=== PATIENT | male | born 1975 | race Caucasian/White ===

== ENCOUNTER 2024-06-07 11:42 | Outpatient (CLI) | payer OTHER, SELFPAY ==
--- NOTE | ~2024-06-07 | XR_ITS ---
EXAMINATION: XR chest 2V DATE: 06/07/2024 12:08 INDICATION: Acute pneumonia. Fever and cough. TECHNIQUE: Frontal and lateral views of the chest were obtained on 3 radiographs. COMPARISON: None. FINDINGS: There is no pneumonia, pleural effusion, or pneumothorax. The heart size is normal. There i s mild chronic anterior wedging of multiple vertebral bodies. IMPRESSION: 1. No acute cardiopulmonary disease. Reviewed, dictated and finalized at location A. 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
== END 2024-06-07 11:43 | disposition home or self-care (01) ==
PROVIDERS: PCP Student in an Organized Health Care Education/Training Program; Visit Provider Student in an Organized Health Care Education/Training Program
DX: J18.9 Pneumonia, unspecified organism (principal)
CPT/HCPCS: 71046

== ENCOUNTER 2024-06-09 08:54 | Emergency (ER) | payer OTHER, SELFPAY ==
--- NOTE | ~2024-06-09 | CT_ITS ---
EXAMINATION: CT brain wo con DATE: 06/09/2024 14:13 INDICATION: Headache TECHNIQUE: Computed tomography (CT) of the head was performed without intravenous contrast. Sagittal and coronal reconstructions were performed. The mA was adjusted according to patient size. Iterative reconstruction technique was employed. The dose-length product was 605.33 mGy-cm. COMPARISON: None FINDINGS: No acute intracranial hemorrhage, acute infarction or abnormal extra axial fluid collection. Ventricl es are normal and symmetric. No mass/mass effect. The orbits, paranasal sinuses and mastoid air cells are normal. IMPRESSION: 1. Normal head CT. Reviewed, dictated and finalized at location A. 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 Normal head CT.
--- OUTSIDE RECORDS SUMMARY | 2024-06-09 09:00 | XMS_ITS | Clinical Summary ---
Author Organization [facility] Address [address] [place] [address] Care Team Providers Care Supervisor Electronic Testing Name Role Phone Stefany Aguayo MD Primary Care Provider [phone] Source Comments [facility],non-owned Affiliates and Associated Physician Practices is amultiple site organization consisting of ambulatory clinics and hospital sitesin [place], [place], [place] and [place]. This disclosure is being madepursuant to the Care Everywhere program and may not contain all information available regarding this patient. Last updated [facility] Allergies Active Allergy Reactions Criticality Noted Date Comments Sulfa Drugs Rash Medium 11/21/2015 Medications * Be aware that medications may not be up to date on this document. Alwaysverify current medications with the patient. Medication Sig Dispensed Refills Start Date End Date Status levocetirizine (XYZAL) 5 MG tablet Take 1 tablet by mouth DAILY. 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 Other symptoms and signs inv olving the musculoskeletal system 11/22/2015 Family History Medical History Relation Name Comments Cancer Father Skin carcinoma Cancer Paternal Grandfather Renal Cancer Paternal Uncle Eye cancer Relation Name Status Comments Father Paternal Grandfather Paternal Uncle Social History Tobacco Use Types Packs/Day Years Used Date Smoking Tobacco: Never Alcohol Use Standard Drinks/Week Comments No 0 (1 standard drink = 0.6 oz pur e alcohol) Sex and Gender Information Value Date Recorded Sex Assigned at Not on file Gender Identity Not on file Sexual Orientation Not on file Last Filed Vital Signs Vital Sign Reading Time Taken Comments Blood Pressure 115/75 12/02/2015 8:03 AM CDT Pulse 56 12/02/2015 8:03 AM CDT Temperature 36.2 C (97.2 F) 12/02/2015 8:03 AM CDT Respiratory Rate 20 12/02/2015 8:03 AM CDT Oxygen Saturation 99% 11/25/2015 11:45 AM CDT Inhaled Oxygen Concentration - - Weight 102.1 kg (225 lb) 05/18/2016 8:51 AM 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 Height 188 cm (6' 2 ) 05/18/2016 8:51 AM 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 Body Mass Index 28.89 05/18/2016 8:51 AM 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 Plan of Treatment Health Maintenance Due Date Last Done Comments COLOGUARD (AGES 45-75) - COL ON CA SCREENING 1976 COLON MONITORING 1976 COLONOSCOPY - COLON CA SCREENING 1976 CT COLONOGRAPHY - COLON CA SCREENING 1976 Colorectal Cancer Screening 1976 FIT - COLON CA SCREENING 1976 FLEX SIG - COLON CA SCREENING 1976 LIPID TESTING 1976 HIV SCREENING 09/02/1991 HEPATITIS C SCREENING 08/28/1994 DTAP/TDAP/TD VACCINES (1 - Tdap) 09/02/1995 HEPATITIS B VACCINE (1 of 3 - 19+ 3-dose series) 09/02/1995 COVID-19 VACCINE (1 - 2023-2 5 season) 2023 INFLUENZA VACCINE (#1) 2023 DEPRESSION SCREENING 04/26/2024 ZOSTER VACCINE (1 of 2) 2026 HIB VACCINE Aged Out No longer eligi ble based on patient's age to complete this topic HPV VACCINE Aged Out No longer eligi ble based on patient's age to complete this topic MENINGOCOCCAL (Group B) VACCINE Aged Out No longer eligible based on patient's age to complete this topic MENINGOCOCCAL VACCINE Aged Out No zohreh belia eligible based on patient's age to complete this topic PNEUMOCOCCAL VACCINE Aged Out No long er eligible based on patient's age to complete this topic Advance Directives Documents on File Type Date 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
--- OUTSIDE RECORDS SUMMARY | 2024-06-09 09:00 | XMS_ITS | Clinical Summary ---
Author Organization [facility] Address [address] [place] [id number] Care Team Providers Care Patient Biller Name Role Phone Stefany Aguayo MD Primary Care Provider Allergies Active Allergy Reactions Criticality Noted Date Comments Sulfa Antibiotics Unknown,Rash Medium 05/25/2011 Medications lansoprazole (PREVACID) 30 MG capsule Take 1 capsule (30 mg total) by mouth daily. Active fluticasone propionate (FLONASE) 50 MCG/ACT nasal spray 1 spray by Each Nostril route daily. 10/09/2022 Active Active Problems Problem Noted Date Diagnosed Date Screen for colon cancer 11/02/2022 Overview (11/02/2022): Added automatically from request for surgery [id number] Social History Tobacco Use Types Packs/Day Years Used Date Smoking Tobacco: Never Smokeless Tobacco: Never Tobacco Cessation:Counseling Given: Not Answered Alcohol Use Standard Drinks/Week Comments Not Currently 0 (1 standard drink = 0.6 oz pur e alcohol) Sex and Gender Information Value Date Recorded Sex Assigned at Not on file Legal Sex Male 5:02 PM CDT Gender Identity Not on file Sexual Orientation Not on file Last Filed Vital Signs Vital Sign Reading Time Taken Comments Blood Pressure 130/94 11/24/2022 10:42 AM CDT Pulse 59 11/24/2022 10:42 AM CDT Temperature 36.4 C (97.6 F) 11/24/2022 10:12 AM CDT Respiratory Rate 16 11/24/2022 10:42 AM CDT Oxygen Saturation 96% 11/24/2022 10:42 AM CDT Inhaled Oxygen Concentration - - Weight 111.6 kg (246 lb) 11/24/2022 9:08 AM CDT Height 188 cm (6' 2 ) 11/24/2022 9:08 AM CDT Body Mass Index 31.58 11/24/2022 9:08 AM CDT Plan of Treatment Health Maintenance Due Date Last Done Comments Annual Physical 09/02/1979 PHQ-2 (Physician [facility]) 1988 Hepatitis C 1994 Hepatitis B Vaccines (1 of 3 - 19+ 3-dose series) 09/02/1995 DTaP, Tdap and Td Vaccines (5 - Td or Tdap) 05/25/2021 05/25/2011, 08/12/1979, 08/12/1979, Additional history exists COVID-19 Vaccine ( - 2023- season) 2023 01/27/2022, 05/07/2021, 06/21/2020, Additional history exists Influenza Adult (#1) 2024 02/01/2020 PHQ-2 (Physician [facility]) 04/26/2024 Colorectal Cancer Screening Colonoscopy (10 Years) 11/24/2032 11/24/2022, 11/24/2022 Meningococcal B Vaccine Aged Out No l onger eligible based on patient's age to complete this topic Meningococcal Vaccine Aged Out No zohreh belia eligible based on patient's age to complete this topic Pneumococcal Vaccine: Pediatrics (0 to 5 Years) and At-Risk Patients (6 to 64 Years) Aged Out No longer eligible based on patient's age to complete this topic RSV Immunizations Under 20 Months Aged Out No longer eligible based on patient's age to complete this topic Procedures Procedure Name Priority Date/Time Associated Diagnosis Comments COLONOSCOPY Routine 11/24/2022 8:49 AM CDT from Last 3 Months or Most Recently Relevant to Health Maintenance Insurance ALLIED BENEFITS Care Teams Patient Biller Relationship Specialty Start Date End Date Stefany Aguayo MD [address] [place] [address] [address] [place] [id number] PCP - General FAMILY PRACTICE 11/16/22
--- OUTSIDE RECORDS SUMMARY | 2024-06-09 09:00 | XMS_ITS | Referral Summary ---
Author Organization [facility] [address] Address [address] [place] [address] Care Team Providers Care Floriculture Teacher Name Role Phone Stefany Aguayo MD Primary Care Provider Source Comments [facility] [address] [facility],non-owned Affiliates and Associated Physician Practices is amultiple site organization consisting of ambulatory clinics and hospital sitesin [place], [place], [place] and [place]. This disclosure is being madepursuant to the Care Everywhere program and may not contain all information available regarding this patient. 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
[2024-06-09 09:01] VITALS: BP 151/104; PULSE 92; RESP 16; TEMP 36.6; O2SAT 100
--- OUTSIDE RECORDS SUMMARY | 2024-06-09 09:01 | XMS_ITS | Patient Health Summary ---
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 This disclosure is being madepursuant to the Care Everywhere program and may not contain all information available regarding this patient. Last updated 18.[facility] Allergies * Sulfa Drugs(Rash) -Medium Criticality Medications * Be aware that medications may not be up to date on this document. Alwaysverify current medications with the patient. * levocetirizine (XYZAL) 5 MG tablet(Started 11/13/2015) Take 1 tablet by mouth DAILY. 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 Other symptoms and signs inv [...] 102.1 kg (225 lb) 05/18/2016 8:51 AM DRYWALL SPRAYER Height 188 cm (6' 2 ) 05/18/2016 8:51 AM DRYWALL SPRAYER Body Mass Index 28.89 05/18/2016 8:51 AM DRYWALL SPRAYER Procedures * XR CERVICAL SPINE 2 OR 3VW(Performed 05/18/2016) * GGT(Performed 11/25/2015) * COMPREHENSIVE METABOLIC PANEL(Performed 11/25/2015) * CBC W AUTO DIFFERENTIAL(Performed 11/25/2015) * CK BLOOD(Performed 11/25/2015) * CBC W AUTO DIFFERENTIAL(Performed 11/25/2015) * SHON W/REFLEX IFA PATTERN(Performed 11/24/2015) * MUMPS ANTIBODY IGM(Performed 11/24/2015) * SHON BLOOD SCREEN W/REFLEX TITER(Performed 11/24/2015) * MUMPS ANTIBODY IGG(Performed 11/24/2015) * GQ1B IGG ANTIBODY(Performed 11/24/2015) * COMPREHENSIVE METABOLIC PANEL(Performed 11/24/2015) * CBC W AUTO DIFFERENTIAL(Performed 11/24/2015) * CBC W AUTO DIFFERENTIAL(Performed 11/24/2015) * MRI THORACIC SPINE WO CONTRAST(Performed 11/23/2015) * MRI LUMBAR SPINE WO CONTRAST(Performed 11/23/2015) * COMPREHENSIVE METABOLIC PANEL(Performed 11/23/2015) * DIFFERENTIAL MANUAL(Performed 11/23/2015) * CBC W AUTO DIFFERENTIAL(Performed 11/23/2015) * CBC W AUTO DIFFERENTIAL(Performed 11/23/2015) * URINALYSIS REFLEX TO MICROSCOPIC NO CULTURE(Performed 11/22/2015) * FOLATE(Performed 11/22/2015) * CK BLOOD(Performed 11/22/2015) * CELL COUNT CSF(Performed 11/22/2015) * DIFFERENTIAL MANUAL FLUID(Performed 11/22/2015) * CELL COUNT CSF(Performed 11/22/2015) * CELL COUNT W DIFF CSF(Performed 11/22/2015) * CELL COUNT W DIFF CSF(Performed 11/22/2015) * LYME DISEASE AB SCREEN CSF(Performed 11/22/2015) * PROTEIN CSF(Performed 11/22/2015) * GLUCOSE CSF(Performed 11/22/2015) * CULTURE CSF+GRAM STAIN(Performed 11/22/2015) * EKG 12-LEAD(Performed 11/22/2015) * VITAMIN B12(Performed 11/21/2015) * T3 FREE(Performed 11/21/2015) * T4 FREE(Performed 11/21/2015) * TSH(Performed 11/21/2015) * CK BLOOD(Performed 11/21/2015) * DRUG ABUSE PANEL 10-20+ETHANOL URINE NO CONFIRM(Performed 11/21/2015) * CT HEAD WO CONTRAST(Performed 11/21/2015) * LYME DISEASE IGG/IGM PANEL WB/IMMUNOBLOT(Performed 11/21/2015) * ERYTHROCYTE SEDIMENTATION RATE(Performed 11/21/2015) * CK + CKMB PANEL(Performed 11/21/2015) * ALCOHOL ETHYL BLOOD(Performed 11/21/2015) * COMPREHENSIVE METABOLIC PANEL(Performed 11/21/2015) * C-REACTIVE PROTEIN(Performed 11/21/2015) * CBC W AUTO DIFFERENTIAL(Performed 11/21/2015) * CBC W AUTO DIFFERENTIAL(Performed 11/21/2015) Results * XR CERVICAL SPINE 2 OR 3VW (05/18/2016 8:49 AM DRYWALL SPRAYER) Anatomical Region Laterality Modality Spine Other Impressions 05/18/2016 9:06 AM DRYWALL SPRAYER IMPRESSION: Mild degenerative disc disease at C5-C6. Dictated by Leslie Martin MD (residential care facility manager). I, Dr. ANA LO M.D. have personally reviewed and interpreted this examination/study. This report was electronically signed by ANA LO M.D. on 05/18/2016 9:06 AM . Narrative 05/18/2016 9:06 AM DRYWALL SPRAYER EXAMINATION: XR SPINE CERVICAL 2 OR 3 VIEWS HISTORY: neck pain COMPARISON: None. FINDINGS: The vertebral bodies are normally aligned. No acute fracture or compression deformity is identified. Mild degenerative narrowing is seen at C5-C6 with mild uncovertebral osteophytes. The remainder of the disc spaces are maintained. The predental interval and prevertebral soft tissues are normal. Bone density is normal. Procedure Note Ana Lo MD - 07/23/2017 EXAMINATION: XR SPINE CERVICAL 2 OR 3 VIEWS HISTORY: neck pain COMPARISON: None. FINDINGS: The vertebral bodies are normally aligned. No acute fracture orcompression deformity is identified. Mild degenerative narrowing is seenat C5-C6 with mild uncovertebral osteophytes. The remainder of the discspaces are maintained. The predental interval and prevertebral soft tissues are normal. Bone density is normal. IMPRESSION IMPRESSION: Mild degenerative disc disease at C5-C6. Dictated by Leslie Martin MD (residential care facility manager). I, Dr. ANA LO M.D. have personally reviewed and interpreted thisexamination/study. This report was electronically signed by ANA LO M.D. on 05/18/20169:06 AM . Nicholas Bartlett MD DIAGNOSTIC IMAGING O RDERABLES * (ABNORMAL) COMPREHENSIVE METABOLIC PANEL (11/25/2015 4:34 AM CDT) Only the most recent of4 resultswithin the time period is included. BUN 17 7 - 26 mg/dL [facility] Creatinine 1.2 0.6 - 1.2 mg/dL [facility] Sodium 140 136 - 145 mmol/L [facility] Potassium 4.3 3.5 - 4.5 mmol/L [facility] Chloride 102 98 - 107 mmol/L [facility] CO2 26 22 - 29 mmol/L [facility] Glucose 94 70 - 115 mg/dL [facility] Calcium 9.5 8.4 - 10.2 mg/dL [facility] Protein Total 7.0 6.0 - 8.3 g/dL [facility] Albumin 3.5 3.4 - 5.0 g/dL [facility] Bilirubin Total 0.5 0.2 - 1.2 mg/dL [facility] Alkaline Phosphatase 53 40 - 150 Units/L [facility] ALT 125(H) 0 - 55 Units/L [facility] AST 84(H) 5 - 34 Units/L [facility] Anion Gap 16 8 - 18 [facility] BUN/Creatinine Ratio 14 7 - 23 [facility] Osmolality Calculated 291 270 - 300 mOsm/kg [facility] Albumin/Globulin Ratio 1.0(L) 1.1 - 2.3 [facility] eGFR >60 >60 mL/min/1.7 3 m2 [facility] Blood specimen (specimen) BLOOD SPECIMEN / Unknown 11/25/2015 4:34 AM CDT 11/25/2015 4:55 AM CDT Jonas Draper MD LAB - CHEMISTRY ORDMaria De Jesus ROSE [facility] [address] [place] [address] * GGT (11/25/2015 4:34 AM CDT) [facility] GGT 49 9 - 64 Units/L [facility] Blood specimen (specimen) BLOOD SPECIMEN / Unknown 11/25/2015 4:34 AM CDT 11/25/2015 4:55 AM CDT Clementina Elias MD LAB - CHEMISTRY [place] Performing Organization Address [facility]/ZIP Co de Phone Number [address] [phone] * CBC W AUTO DIFFERENTIAL (11/25/2015 4:34 AM CDT) Only the most recent of8 resultswithin the time period is included. [facility] WBC 5.1 3.5 - 10.5 10 3/uL [facility] RBC 4.79 4.30 - 5.70 10 6/uL [facility] Hemoglobin 14.4 13.5 - 17.5 g/dL [facility] Hematocrit 40.9 39.0 - 50.0 % [facility] MCV 85.4 81.0 - 97.0 fL [facility] MCH 30.1 28.0 - 34.0 pg [facility] MCHC 35.2 32.0 - 36.0 g/dL [facility] Platelet Count 193 150 - 400 10 3/uL [facility] RDW-SD 37.4 36.0 - 50.0 fL [facility] RDW-CV 12.0 11.2 - 14.8 % [facility] MPV 10.5 9.3 - 12.8 fL [facility] Neutrophils % 51.6 35.0 - 70.0 % [facility] Lymphocytes % 37.7 19.7 - 55.1 % [facility] Monocytes % 7.5 3.0 - 15.0 % [facility] Eosinophils % 3.0 0.0 - 6.0 % [facility] Basophil % 0.2 0.0 - 1.5 % [facility] Neutrophils Absolute 2.6 1.6 - 7.0 10 3/uL [facility] Lymphocyte Absolute 1.9 0.8 - 2.9 10 3/uL [facility] Monocytes Absolute 0.38 0.14 - 0.66 10 3/uL [facility] Eosinophils Absolute 0.15 0.00 - 0.22 10 3/uL [facility] Basophils Absolute 0.01 0.00 - 0.06 10 3/uL [facility] Immature Granulocytes % 0.2 0.0 - 1.0 % [facility] Blood specimen (specimen) BLOOD SPECIMEN / Unknown 11/25/2015 4:34 AM CDT 11/25/2015 4:55 AM CDT Jonas Draper MD LAB - HEMATOLOGY ORD ERABLES Performing Organization Address City/[facility]/ZIP Co de Phone Number [address] [phone] * CK BLOOD (11/25/2015 4:34 AM CDT) Only the most recent of3 resultswithin the time period is included. CK Total 157 30 - 200 Units/L [facility] Blood specimen (specimen) BLOOD SPECIMEN / Unknown 11/25/2015 4:34 AM CDT 11/25/2015 8:22 AM CDT Clementina Elias MD LAB - CHEMISTRY [place] [address] [phone] * (ABNORMAL) SHON W/REFLEX IFA PATTERN (11/24/2015 8:48 AM CDT) SHON Positive(A ) None Detected [facility] Blood specimen (specimen) BLOOD SPECIMEN / Unknown 11/24/2015 8:48 AM CDT 11/24/2015 9:20 AM CDT Clementina Elias MD LAB - SEROLOGY ORDER [place] [facility] [address] [place] [address] * SHON BLOOD SCREEN W/REFLEX TITER (11/24/2015 8:48 AM CDT) SHON IFA Negative [facility] ([facility]) Comment: Negative <1:80 Borderline 1:80 Positive >1:80 Blood specimen (specimen) BLOOD SPECIMEN / Unknown 11/24/2015 8:48 AM CDT 11/25/2015 11:09 AM CDT Narrative [facility] ([facility]) - 11/26/2015 3:18 PM CDT Performed at: [address] [place] [address] [id number] Deburr Operator: Cecilio Swain PhD, Phone: [phone] Clementina Elias MD LAB - CHEMISTRY JHOANA ROSE Performing Organization Address [facility] Co de Phone Number [facility] ([facility]) * MUMPS ANTIBODY IGG (11/24/2015 8:48 AM CDT) Pathologist [facility] Mumps Virus Antibody IgG 57.2 Immune >10.9 AU/mL [facility]) Comment: Negative <9.0 Equivocal 9.0 - 10.9 Positive >10.9 A positive result generally indicates past exposure to Mumps virus or previous vaccination. Blood specimen (specimen) BLOOD SPECIMEN / Unknown 11/24/2015 8:48 AM CDT 11/25/2015 1:06 PM CDT Narrative [facility] ([facility]) - 11/26/2015 3:18 PM CDT Performed at: [address] [place] [address] [id number] Deburr Operator: Cecilio Swain PhD, Phone: [phone] Clementina Elias MD LAB - CHEMISTRY J[place]ANA ROSE Performing Organization Address [facility]/ZIP Co de Phone Number [facility] ([facility]) * (ABNORMAL) MUMPS ANTIBODY IGM (11/24/2015 8:48 AM CDT) Mumps Virus Antibody IgM 8.48(H) 0.00 - 0.79 AU [facility] ([facility]) Comment: Negative < 0.80 Borderline 0.80 - 1.20 Positive > 1.20 Note: The presence of IgM specific antibody should be interpreted in conjunction with the patient's clinical history and exposure risk when an acute infection is suspected. Blood specimen (specimen) BLOOD SPECIMEN / Unknown 11/24/2015 8:48 AM CDT 11/25/2015 1:06 PM CDT Narrative [facility] ([facility]) - 11/28/2015 6:16 AM CDT Performed at: - [address] [id number] Deburr Operator: Catrachito Juarez MD, Phone: [phone] Clementina Elias MD LAB - CHEMISTRY J[place]ANA ROSE [facility] ([facility]) * GQ1B IGG ANTIBODY (11/24/2015 7:58 AM CDT) Pathologist [facility] Anti-GQ1b Antibody IgG <1:100 titer [facility] ([facility]) Comment: Reference Range: Negative: < 1:100 titer Positive: => 1:100 titer Titers of less than 1:400 may not be clinically significant. We suggest clinical correlation to ascertain the significance of the low titers. Antibodies against glycolipids (GM1, GD1a, GD1b, GQ1b, asialo GM1, and sulfatides) are present in patients with Guillain-[place] syndrome (GBS), IgM paraproteinemic neuropathy, and chronic demyelinating polyneuropathy (CIDP). Antibodies to one or more glycolipids are present in 60-70% of patients with GBS. The titers of anti-glycolipid antibodies are higher in acute phase and decrease in association with clinical improvement. Antibodies against GM1 and/or GD1b are frequently present in acute phase GBS. The two antibodies together occur in about 20% of these cases, anti-GM1 without anti-GD1b antibodies in about 10% and anti-GD1b without anti-GM1 antibodies in about 10% of GBS patients. Antibodies against GQ1b of IgG isotype are present in 95% of patients with Acharya Staton syndrome (MFS). The titers of these antibodies fluctuates with disease activity. IgM paraproteinemia is often associated with peripheral neuropathies. These antibodies are present in one half of patients with specificity for SGPG, GD1b and other gangliosides. Anti-GM1 IgM antibodies are usually associated with motor-dominant or sensorimotor neuropathies. These antibodies are also elevated in diseases other than multifocal neuropathies such as GBS, CIDP and other immunological diseases. *This test has been developed and performance parameters have been validated by [employer] This test has not been approved by the U.S. Food and Drug Administration (FDA); however, US FDA approval is not required for clinical use. It is not intended that clinical diagnosis and patient management decisions be made using these results alone. This test has been validated using serum samples. The field mechanic has not determined the efficacy of this test when performed on CSF, plasma, joint or pleural fluid specimens. The performance characteristics of this test were determined by [employer] Blood specimen (specimen) BLOOD SPECIMEN / Unknown 11/24/2015 7:58 AM CDT 11/24/2015 8:07 AM CDT Narrative [facility] ([facility]) - 11/29/2015 11:14 AM CDT Performed at: 01 - [employer] [address] [place] [address] [id number] Deburr Operator: Shahriar Quiles PhD, Phone: [phone] Clementina Elias MD LAB - CHEMISTRY J[place]ANA ROSE [facility] * MRI LUMBAR SPINE WO CONTRAST (11/23/2015 11:51 AM CDT) Anatomical Region Laterality Modality Spine Other Impressions 11/24/2015 8:20 AM CDT IMPRESSION: 1. A thin epidural fluid collection that extends from T1 through T11 levels of the thoracic spine, measuring up to 3 mm in maximum thickness. This collection is not suppressed on the STIR images, likely representing epidural hemorrhage/edema. There is no spinal cord compression or abnormal spinal cord signal. 2. Mild right paraspinal edema in the lumbar spine, likely related to recent lumbar puncture. No fluid collections. This report was electronically signed by BOBBY THOMAS M.D. on 11/24/2015 8:20 AM . Narrative 11/24/2015 8:20 AM CDT EXAMINATION: Thoracic and lumbar spine MRI without contrast. HISTORY: Pain between shoulder blades. Low back pain status post lumbar puncture. TECHNIQUE: Multiplanar multisequence MR imaging of the thoracic and lumbar spine was performed without intravenous contrast according to a standard protocol. Comparison: None available. FINDINGS: There is mild degenerative disc disease in the cervical spine at C5-C6 level. Thoracic spine: There is a thin epidural fluid collection that extends from T1 through T11 levels of the thoracic spine, measuring up to 3 mm in maximum thickness. This collection is not suppressed on the STIR images, likely representing epidural hemorrhage/edema. There is slight narrowing of the thecal sac. However, there no compression of the spinal cord. The spinal cord demonstrate normal caliber and signal throughout the entire course There is mild exaggerated thoracic kyphosis. There is mild gentle dextrocurvature in the thoracic spine. The vertebral heights are normal with no compression fractures. The bone marrow demonstrates normal signal intensity on all sequences. There is mild degenerative disc disease with multiple Schmorl's nodes in the thoracic spine. The central spinal canal is patent. The facet joints are well aligned. The neuroforamen are patent at all levels. The thoracic spinal cord is normal in caliber and signal intensity. Prevertebral soft tissues and paraspinal muscles are normal in thickness. The visualized portions of the descending aorta demonstrate normal caliber. Lumbar spine MRI: There is mild to moderate STIR hyperintensity in the right paraspinal muscle from L2 through L5 levels, likely representing edema related to history of recent lumbar puncture. No fluid collections are identified. The lumbar spine is normal in alignment. The vertebral heights are normal with no compression fractures. The bone marrow demonstrates normal signal intensity on all sequences. The intervertebral disc spaces are normal in signal and height. There is mild facet arthropathy at L4-L5 and L5-S1 levels bilaterally. The distal spinal cord demonstrate normal caliber and signal intensity. The conus medullaris is normal, terminating at L1. The neuroforamen and the central spinal canal are patent. No space occupying lesions are identified in the spinal canal or spinal cord. The cauda equina is normal. The visualized distal abdominal aorta demonstrates normal caliber. The paraspinal muscles are normal. Procedure Note Bobby Thomas MD - 07/24/2017 EXAMINATION: Thoracic and lumbar spine MRI without contrast. HISTORY: Pain between shoulder blades. Low back pain status post lumbarpuncture. TECHNIQUE: Multiplanar multisequence MR imaging of the thoracic and lumbarspine was performed without intravenous contrast according to a standardprotocol. Comparison: None available. FINDINGS: There is mild degenerative disc disease in the cervical spine at C5-S0tggdm. Thoracic spine: There is a thin epidural fluid collection that extends from T1 through [id number] of the thoracic spine, measuring up to 3 mm in maximum thickness.This collection is not suppressed on the STIR images, likely representingepidural hemorrhage/edema. There is slight narrowing of the thecal sac. However, there no compression ofthe spinal cord. The spinal cord demonstrate normal caliber and signalthroughout the entire course There is mild exaggerated thoracic kyphosis. There is mild gentledextrocurvature in the thoracic spine. The vertebral heights are normalwith no compression fractures. The bone marrow demonstrates normal signalintensity on all sequences. There is mild degenerative disc disease with multiple Schmorl's nodes in the thoracicspine. The central spinal canal is patent. The facet joints are wellaligned. The neuroforamen are patent at all levels. The thoracic spinalcord is normal in caliber and signal intensity. Prevertebral soft tissues and paraspinal muscles are normal in thickness.The visualized portions of the descending aorta demonstrate normalcaliber. Lumbar spine MRI: There is mild to moderate STIR hyperintensity in the right paraspinalmuscle from L2 through L5 levels, likely representing edema related tohistory of recent lumbar puncture. No fluid collections are identified. The lumbar spine is normal in alignment. The vertebral heights are normalwith no compression fractures. The bone marrow demonstrates normal signalintensity on all sequences. The intervertebral disc spaces are normal insignal and height. There is mild facet arthropathy at L4-L5 and L5-S1 levels bilaterally. The distal spinalcord demonstrate normal caliber and signal intensity. The conus medullarisis normal, terminating at L1. The neuroforamen and the central spinal canal are patent. No spaceoccupying lesions are identified in the spinal canal or spinal cord. Thecauda equina is normal. The visualized distal abdominal aorta demonstrates normal caliber. Theparaspinal muscles are normal. IMPRESSION IMPRESSION: 1. A thin epidural fluid collection that extends from T1 through X74uykege of the thoracic spine, measuring up to 3 mm in maximum thickness.This collection is not suppressed on the STIR images, likely representingepidural hemorrhage/edema. There is no spinal cord compression or abnormal spinal cord signal. 2. Mild right paraspinal edema in the lumbar spine, likely related torecent lumbar puncture. No fluid collections. This report was electronically signed by BOBBY THOMAS M.D. on 11/24/20158:20 AM . Clementina Elias MD MR ORDERABLES * MRI THORACIC SPINE WO CONTRAST (11/23/2015 11:51 AM CDT) Anatomical Region Laterality Modality Chest Other Impressions 11/24/2015 8:20 AM CDT IMPRESSION: 1. A thin epidural fluid collection that extends from T1 through T11 levels of the thoracic spine, measuring up to 3 mm in maximum thickness. This collection is not suppressed on the STIR images, likely representing epidural hemorrhage/edema. There is no spinal cord compression or abnormal spinal cord signal. 2. Mild right paraspinal edema in the lumbar spine, likely related to recent lumbar puncture. No fluid collections. This report was electronically signed by BOBBY THOMAS M.D. on 11/24/2015 8:20 AM . Narrative 11/24/2015 8:20 AM CDT EXAMINATION: Thoracic and lumbar spine MRI without contrast. HISTORY: Pain between shoulder blades. Low back pain status post lumbar puncture. TECHNIQUE: Multiplanar multisequence MR imaging of the thoracic and lumbar spine was performed without intravenous contrast according to a standard protocol. Comparison: None available. FINDINGS: There is mild degenerative disc disease in the cervical spine at C5-C6 level. Thoracic spine: There is a thin epidural fluid collection that extends from T1 through T11 levels of the thoracic spine, measuring up to 3 mm in maximum thickness. This collection is not suppressed on the STIR images, likely representing epidural hemorrhage/edema. There is slight narrowing of the thecal sac. However, there no compression of the spinal cord. The spinal cord demonstrate normal caliber and signal throughout the entire course There is mild exaggerated thoracic kyphosis. There is mild gentle dextrocurvature in the thoracic spine. The vertebral heights are normal with no compression fractures. The bone marrow demonstrates normal signal intensity on all sequences. There is mild degenerative disc disease with multiple Schmorl's nodes in the thoracic spine. The central spinal canal is patent. The facet joints are well aligned. The neuroforamen are patent at all levels. The thoracic spinal cord is normal in caliber and signal intensity. Prevertebral soft tissues and paraspinal muscles are normal in thickness. The visualized portions of the descending aorta demonstrate normal caliber. Lumbar spine MRI: There is mild to moderate STIR hyperintensity in the right paraspinal muscle from L2 through L5 levels, likely representing edema related to history of recent lumbar puncture. No fluid collections are identified. The lumbar spine is normal in alignment. The vertebral heights are normal with no compression fractures. The bone marrow demonstrates normal signal intensity on all sequences. The intervertebral disc spaces are normal in signal and height. There is mild facet arthropathy at L4-L5 and L5-S1 levels bilaterally. The distal spinal cord demonstrate normal caliber and signal intensity. The conus medullaris is normal, terminating at L1. The neuroforamen and the central spinal canal are patent. No space occupying lesions are identified in the spinal canal or spinal cord. The cauda equina is normal. The visualized distal abdominal aorta demonstrates normal caliber. The paraspinal muscles are normal. Procedure Note Bobby Thomas MD - 07/24/2017 EXAMINATION: Thoracic and lumbar spine MRI without contrast. HISTORY: Pain between shoulder blades. Low back pain status post lumbarpuncture. TECHNIQUE: Multiplanar multisequence MR imaging of the thoracic and lumbarspine was performed without intravenous contrast according to a standardprotocol. Comparison: None available. FINDINGS: There is mild degenerative disc disease in the cervical spine at C5-[id number]. Thoracic spine: There is a thin epidural fluid collection that extends from T1 through C25bucicg of the thoracic spine, measuring up to 3 mm in maximum thickness.This collection is not suppressed on the STIR images, likely representingepidural hemorrhage/edema. There is slight narrowing of the thecal sac. However, there no compression ofthe spinal cord. The spinal cord demonstrate normal caliber and signalthroughout the entire course There is mild exaggerated thoracic kyphosis. There is mild gentledextrocurvature in the thoracic spine. The vertebral heights are normalwith no compression fractures. The bone marrow demonstrates normal signalintensity on all sequences. There is mild degenerative disc disease with multiple Schmorl's nodes in the thoracicspine. The central spinal canal is patent. The facet joints are wellaligned. The neuroforamen are patent at all levels. The thoracic spinalcord is normal in caliber and signal intensity. Prevertebral soft tissues and paraspinal muscles are normal in thickness.The visualized portions of the descending aorta demonstrate normalcaliber. Lumbar spine MRI: There is mild to moderate STIR hyperintensity in the right paraspinalmuscle from L2 through L5 levels, likely representing edema related tohistory of recent lumbar puncture. No fluid collections are identified. The lumbar spine is normal in alignment. The vertebral heights are normalwith no compression fractures. The bone marrow demonstrates normal signalintensity on all sequences. The intervertebral disc spaces are normal insignal and height. There is mild facet arthropathy at L4-L5 and L5-S1 levels bilaterally. The distal spinalcord demonstrate normal caliber and signal intensity. The conus medullarisis normal, terminating at L1. The neuroforamen and the central spinal canal are patent. No spaceoccupying lesions are identified in the spinal canal or spinal cord. Thecauda equina is normal. The visualized distal abdominal aorta demonstrates normal caliber. Theparaspinal muscles are normal. IMPRESSION IMPRESSION: 1. A thin epidural fluid collection that extends from T1 through W11bckzzu of the thoracic spine, measuring up to 3 mm in maximum thickness.This collection is not suppressed on the STIR images, likely representingepidural hemorrhage/edema. There is no spinal cord compression or abnormal spinal cord signal. 2. Mild right paraspinal edema in the lumbar spine, likely related torecent lumbar puncture. No fluid collections. This report was electronically signed by BOBBY THOMAS M.D. on 11/24/20158:20 AM . Clementina Elias MD MR ORDERABLES * (ABNORMAL) DIFFERENTIAL MANUAL (11/23/2015 4:56 AM CDT) WBC (corrected for NRBC) 4.4 10 3/uL [facility] Total Cell Count 100 [facility] Neutrophils Absolute Manual 2.38 1.60 - 7.00 10 3/uL [facility] Comment:(BANDS+SEGS) x WBC = NEUT # (ANC) Lymphocyte Absolute Manual 1.63 0.80 - 2.90 10 3/uL [facility] Monocytes Absolute Manual 0.26 0.14 - 0.66 10 3/uL [facility] Eosinophils Absolute Manual 0.09 0.00 - 0.22 10 3/uL [facility] Band % Manual 3 0 - 10 % [facility] Neutrophil % Manual 51 30 - 60 % [facility] Lymphocyte % Manual 37 20 - 45 % [facility] Monocytes % Manual 6 2 - 10 % [facility] Eosinophils % Manual 2 1 - 6 % [facility] Atypical Lymphocyte % Manual 1(H) 0 % [facility] Platelet Estimate Adequate Adequate [facility] RBC Morphology Normal [facility] Blood specimen (specimen) BLOOD SPECIMEN / Unknown 11/23/2015 4:56 AM CDT 11/23/2015 5:20 AM CDT Jonas Draper MD LAB - HEMATOLOGY ORD ERABLES [address] [phone] * (ABNORMAL) URINALYSIS REFLEX TO MICROSCOPIC NO CULTURE (11/22/2015 5:01 PM CDT) Color UA Yellow Straw, Yellow, Colorless, Light Yellow [facility] Clarity UA Clear Clear [facility] Specific [place] UA 1.010 1.001 - 1.030 [facility] pH UA 7.0 5.0 - 8.0 [facility] Protein UA Negative <=20 mg/dL [facility] Glucose UA Negative Negative mg/dL [facility] Ketone UA Negative Negative mg/dL [facility] Bilirubin UA Negative Negative mg/dL [facility] Blood UA Negative Negative [facility] Nitrite UA Negative Negative [facility] Leukocyte Esterase Negative Negative [facility] Urobilinogen UA <2.0 <2.0 mg/dL [facility] RBC UA 3 0 - 8 /HPF [facility] WBC UA <1 0 - 2 /HPF [facility] Bacteria UA Rare Rare, Occasional, None /HPF [facility] Mucus UA Rare(A) None /LPF [facility] Urine specimen (specimen) 11/22/2015 5:01 PM CDT 11/22/2015 5:01 PM CDT Jonas Draper MD LAB - URINALYSIS ORD APT Performing Organization Address [facility]/ZIP Co de Phone Number [address] [phone] * FOLATE (11/22/2015 11:15 AM CDT) Pathologist [facility] Folate 11.9 7.0 - 31.4 ng/mL [facility] Blood specimen (specimen) BLOOD SPECIMEN / Unknown 11/22/2015 11:15 AM CDT 11/22/2015 11:15 AM CDT Clementina Elias MD LAB - CHEMISTRY JHOANA ROSE Performing Organization Address [facility]/ZIP Co de Phone Number [address] [phone] * (ABNORMAL) CELL COUNT CSF (11/22/2015 1:57 AM CDT) Only the most recent of2 resultswithin the time period is included. Pathologist [facility] Color Fluid Colorless Colorless, Straw [facility] Clarity Fluid Clear Clear [facility] Volume Fluid 1.5 mL [facility] WBC Calculation Fluid 0 0 - 5 /uL [facility] RBC Calculation 1(H) 0 /uL [facility] Xanthochromia Fluid Negative Negative [facility] Fluid specimen (specimen) CEREBROSPINAL FLUID SPECIMEN / Unknown 11/22/2015 1:57 AM CDT 11/22/2015 1:58 AM CDT Jonas Draper MD LAB - BODY FLUID ORD PAT Performing Organization Address [facility]/ZIP Co de Phone Number [address] [phone] * (ABNORMAL) DIFFERENTIAL MANUAL FLUID (11/22/2015 1:57 AM CDT) Lymphocytes % Fluid 38(L) 40 - 80 % [facility] Monocytes % Fluid 62(H) 15 - 45 % [facility] Fluid specimen (specimen) CEREBROSPINAL FLUID SPECIMEN / Unknown 11/22/2015 1:57 AM CDT 11/22/2015 1:58 AM CDT Narrative [facility] - 11/22/2015 2:31 AM CDT No reference range established for other differential results. Jonas Draper MD LAB - BODY FLUID ORD ERABLES Performing Organization Address [facility] Co de Phone Number [facility] [address] [phone] * CELL COUNT W DIFF CSF (11/22/2015 1:57 AM CDT) Only the most recent of2 resultswithin the time period is included. Fluid specimen (specimen) CEREBROSPINAL FLUID SPECIMEN / Unknown 11/22/2015 1:57 AM CDT [facility] - 11/22/2015 2:32 AM CDT The following orders were created for panel order CSF Cell Count with Diff - Last Tube. Procedure Abnormality Status --------- ------ SPINAL FLUID CELL COUNT[[id number]] Abnormal Final result Please view results for these tests on the individual orders. Jonas Draper MD LAB - BODY FLUID ORD ERABLES Performing Organization Address [facility] Co de Phone Number [facility] [address] * LYME DISEASE AB SCREEN CSF (11/22/2015 1:56 AM CDT) Pathologist [facility] Borrelia burgdorferi Antibody CSF 0.07 <=0.99 NOHELIA [facility] ([place]) Comment: INTERPRETIVE INFORMATION: Borrelia burgdorferi Abs, CHERRY, CSF 0.99 NOHELIA or less: ......... Negative - Antibody to Borrelia burgdorferi not detected. 1.00 - 1.20 NOHELIA ........... Equivocal - Repeat testing in 10-14 days may be helpful. 1.21 NOHELIA or greater: ...... Positive - Probable presence of antibody to Borrelia burgdorferi detected. The detection of antibodies to Borrelia burgdorferi in CSF may indicate central nervous system infection. However, consideration must be given to possible contamination by blood or transfer of serum antibodies across the blood-brain barrier. Current CDC recommendations for the serologic diagnosis of Lyme disease are to screen with a polyvalent CHERRY test and confirm equivocal and positive results with Western Blot. Both IgM and IgG Western Blots should be performed on samples less than 4 weeks after appearance of erythema migrans. Only IgG Western Blot should be performed on samples greater than 4 weeks after the disease onset. IgM Western Blot in the chronic stage is not recommended and does not aid in the diagnosis of neuroborreliosis or chronic Lyme disease. Please submit requests for appropriate Western Blot testing within 10 days. Test developed and characteristics determined by [employer]. See Compliance Statement B: [email or web address] Spinal fluid (substance) CEREBROSPINAL FLUID SPECIMEN / Unknown 11/22/2015 1:56 AM CDT 11/22/2015 1:58 AM CDT Jonas Draper MD LAB - BODY FLUID ORD ERABLES [facility] ([place]) * PROTEIN CSF (11/22/2015 1:56 AM CDT) Protein CSF 23 15 - 45 mg/dL [facility] Spinal fluid (substance) CEREBROSPINAL FLUID SPECIMEN / Unknown 11/22/2015 1:56 AM CDT 11/22/2015 1:58 AM CDT Jonas Draper MD LAB - BODY FLUID ORD ERABLES [address] [phone] * GLUCOSE CSF (11/22/2015 1:56 AM CDT) Glucose CSF 55 40 - 70 mg/dL [facility] Spinal fluid (substance) CEREBROSPINAL FLUID SPECIMEN / Unknown 11/22/2015 1:56 AM CDT 11/22/2015 1:58 AM CDT Jonas Draper MD LAB - BODY FLUID ORD ERABLES Performing Organization Address [facility] Co de Phone Number [address] [phone] * CULTURE CSF+GRAM STAIN (11/22/2015 1:56 AM CDT) Culture CSF No Growth at 1 week [facility] Gram Stain No Organism Seen [facility] Spinal fluid (substance) CEREBROSPINAL FLUID SPECIMEN / Unknown 11/22/2015 1:56 AM CDT 11/22/2015 1:58 AM CDT Narrative [facility] - 11/29/2015 11:06 AM CDT Specimen Type->Cerebrospinal Fluid Gram Stains are routinely screened for the presence of Polymorphonuclear Cells. Gram Stains are routinely screened for the presence of Polymorphonuclear Cells. Jonas Draper MD LAB - MICROBIOLOGY O RDERABLES Performing Organization Address [facility] de Phone Number [address] [phone] * EKG 12-LEAD (11/22/2015 12:00 AM CDT) EKG [facility] Comment: Exam Date/Time: Nov 22 2015 10:13:22 Test Reason : chest pain Exam Date/Time: Nov 22 2015 10:13:22 Blood Pressure : / mmHG Vent. Rate : 056 BPM Atrial Rate : 056 BPM P-R Int : 152 ms QRS Dur : 098 ms QT Int : 408 ms P-R-T Axes : 019 009 005 degrees QTc Int : 393 ms Sinus bradycardia Nonspecific ST changes No previous ECGs available Confirmed by Ronny WEISS, CASSANDRA ([id number]), science editor DAVID OREILLY ([id number]) on 12/16/2015 12:00:26 PM Referred By: REFERRING NO Confirmed By:CASSANDRA WEISS M.D 11/22/2015 Jonas Draper MD ECG ORDERABLES Performing Organization Address [facility]/State/ZIP Co de Phone Number [facility] * T3 FREE (11/21/2015 9:25 PM CDT) T3 Free 2.9 1.7 - 3.7 pg/mL [facility] Blood specimen (specimen) BLOOD SPECIMEN / Unknown 11/21/2015 9:25 PM CDT 11/21/2015 9:27 PM CDT Clementina Elias MD LAB - CHEMISTRY JHOANA ROSE [address] [phone] * VITAMIN B12 (11/21/2015 9:25 PM CDT) Vitamin B12 431 213 - 816 pg/mL [facility] Blood specimen (specimen) BLOOD SPECIMEN / Unknown 11/21/2015 9:25 PM CDT 11/21/2015 9:27 PM CDT Clementina Elias MD LAB - CHEMISTRY JHOANA ROSE Performing Organization Address City/[facility]/ZIP Co de Phone Number [address] [phone] * TSH (11/21/2015 9:25 PM CDT) TSH 2.207 0.350 - 4.940 uIU/mL [facility] Blood specimen (specimen) BLOOD SPECIMEN / Unknown 11/21/2015 9:25 PM CDT 11/21/2015 9:27 PM CDT Clementina Elias MD LAB - CHEMISTRY JHOANA ROSE [address] [phone] * T4 FREE (11/21/2015 9:25 PM CDT) T4 Free 0.9 0.7 - 1.5 ng/dL [facility] Blood specimen (specimen) BLOOD SPECIMEN / Unknown 11/21/2015 9:25 PM CDT 11/21/2015 9:27 PM CDT Clementina Elias MD LAB - CHEMISTRY JHOANA ROSE Performing Organization Address City/[facility]/ZIP Co de Phone Number [address] [phone] * DRUG ABUSE PANEL 10-20+ETHANOL URINE NO CONFIRM (11/21/2015 9:22 PM CDT) Pathologist [facility] Amphetamines Screen Urine Negative Negative: < 1000 ng/mL [facility] Barbiturates Screen Urine Negative Negative: < 200 ng/mL [facility] Benzodiazepine Screen Urine Negative Negative: < 200 ng/mL [facility] Opiates Urine Negative Negative: < 300 ng/mL [facility] Cocaine Metabolites Urine Negative Negative: < 300 ng/mL [facility] Phencyclidine Screen Urine Negative Negative: < 25 ng/ml [facility] Cannabinoids Screen Urine Negative Negative: <50 ng/mL [facility] Methadone Screen Urine Negative Negative: < 300 ng/mL [facility] Urine specimen (specimen) 11/21/2015 9:22 PM CDT 11/21/2015 9:27 PM CDT Narrative [facility] - 11/21/2015 9:43 PM CDT The Urine Toxicology Screening Panel does not screen for Propoxyphene, Meprobamate, Carisoprodol, Trazodone, dhbb-eas-nskwlup medications and/or volatiles (Acetone, Isopropanol, Methanol or Ethylene Glycol). Ethanol, Salicylate, Acetaminophen, Tricyclic Antidepressants and several therapeutic drugs may be individually assayed in serum or plasma specimen. Toxicology testing by the [facility] is an aid to medical diagnosis and treatment of patients. No documented chain of custody was maintained. Results are intended to be used for clinical purposes only. Jonas Draper MD LAB - URINE CHEMISTR Y ORDERABLES Performing Organization Address [facility]/ZIP Co de Phone Number [address] [phone] * CT HEAD WO CONTRAST (11/21/2015 7:45 PM CDT) Anatomical Region Laterality Modality Head Other Impressions 11/22/2015 7:34 AM CDT IMPRESSION: 1. No acute intracranial process. This report was approved by Tai Jones on 11/22/2015 7:[address] KARINA Amaral M.D. have personally reviewed and interpreted this examination/study. This report was electronically signed by KARINA THOMAS M.D. on 11/22/2015 7:34 AM . Narrative 11/22/2015 7:34 AM CDT EXAMINATION: Computed tomography (CT) of the head without contrast HISTORY: Weakness TECHNIQUE: CT of the head was performed without contrast according to standard protocol. FINDINGS: No prior study is available for comparison at the time of this dictation. No acute intra- or extra-axial fluid collections are identified. The ventricles are of normal size, shape, and morphology. The basilar cisterns are patent. No mass effect or midline shift is seen. The baer-white matter differentiation is normal. Other than bilateral maxillary mucous retention cysts, the visualized portions of the orbits, paranasal sinuses, and mastoids appear normal. No acute fracture is identified. Procedure Note Karina Thomas MD - 07/24/2017 EXAMINATION: Computed tomography (CT) of the head without contrast HISTORY: Weakness TECHNIQUE: CT of the head was performed without contrast according tostandard protocol. FINDINGS: No prior study is available for comparison at the time of thisdictation. No acute intra- or extra-axial fluid collections are identified. Theventricles are of normal size, shape, and morphology. The basilar cisternsare patent. No mass effect or midline shift is seen. The baer-white matterdifferentiation is normal. Other than bilateral maxillary mucous retention cysts, the visualizedportions of the orbits, paranasal sinuses, and mastoids appear normal. Noacute fracture is identified. IMPRESSION IMPRESSION: 1. No acute intracranial process. This report was approved by Tai Jones on 11/22/2015 7:[address] KARINA Amaral M.D. have personally reviewed and interpreted thisexamination/study. This report was electronically signed by KARINA THOMAS M.D. on 11/22/20157:34 AM . Jonas Draper MD CT ORDERABLES * (ABNORMAL) LYME DISEASE IGG/IGM PANEL WB/IMMUNOBLOT (11/21/2015 7:20 PM CDT) IgG P93 Antibody Absent [facility] ([facility]) IgG P66 Antibody Present(A) [facility] ([facility]) IgG P58 Antibody Absent [facility] ([facility]) IgG P45 Antibody Absent [facility] ([facility]) IgG P41 Antibody Present(A) [facility] ([facility]) IgG P39 Antibody Absent [facility] ([facility]) IgG P30 Antibody Absent [facility] ([facility]) IgG P28 Antibody Absent [facility] ([facility]) IgG P23 Antibody Absent [facility] ([facility]) IgG P18 Antibody Absent [facility] ([facility]) Interpretation Lyme Antibody IgG WB Negative [facility] ([facility]) Comment: Positive: 5 of the following Borrelia-specific bands: 18,23,28,30,39,41,45,58, 66, and 93. Negative: No bands or banding patterns which do not meet positive criteria. IgM P41 Antibody Present(A) [facility] ([facility]) IgM P39 Antibody Absent [facility] ([facility]) IgM P23 Antibody Present(A) [facility] ([facility]) Interpretation Lyme Antibody IgM WB Positive(A) [facility] ([place]) Comment: Note: An equivocal or positive EIA result followed by a negative Western Blot result is considered NEGATIVE. An equivocal or positive EIA result followed by a positive Western Blot is considered POSITIVE by the CDC. Positive: 2 of the following bands: 23,39 or 41 Negative: No bands or banding patterns which do not meet positive criteria. Criteria for positivity are those recommended by CDC/ASTPHLD. p23=Osp C, c63=vyxdlvgxv Note: Sera from individuals with the following may cross react in the Lyme Western Blot assays: other spirochetal diseases (periodontal disease, leptospirosis, relapsing fever, yaws, and pinta); connective autoimmune (Rheumatoid Arthritis and Systemic Lupus Erythematosus and also individuals with Antinuclear Antibody); other infections (Corazon Spotted Fever; Lynne-Banerjee Virus, and Cytomegalovirus). Blood specimen (specimen) BLOOD SPECIMEN / Unknown 11/21/2015 7:20 PM CDT 11/21/2015 7:27 PM CDT Narrative [facility] ([place]) - 11/26/2015 5:09 PM CDT Performed at: 01 - [address] [id number] [place] Operator: Catrachito Juarez MD, Phone: [phone] Jonas Draper MD LAB - SEROLOGY ORDER [place] Performing Organization Address City/[facility]/ZIP Co de Phone Number [facility] ([place]) * (ABNORMAL) C-REACTIVE PROTEIN (11/21/2015 7:20 PM CDT) C-Reactive Protein 1.2(H) <=0.5 mg/dL [facility] Blood specimen (specimen) BLOOD SPECIMEN / Unknown 11/21/2015 7:20 PM CDT 11/21/2015 7:27 PM CDT Jonas Draper MD LAB - CHEMISTRY ORDE RABESE Performing Organization Address [facility]/ZIP Co de Phone Number [address] [phone] * (ABNORMAL) ERYTHROCYTE SEDIMENTATION RATE (11/21/2015 7:20 PM CDT) Erythrocyte Sedimentation Rate Westergren 18(H) 0 - 10 MM/HR [facility] Blood specimen (specimen) BLOOD SPECIMEN / Unknown 11/21/2015 7:20 PM CDT 11/21/2015 7:27 PM CDT Jonas Draper MD LAB - HEMATOLOGY ORD ERABLES Performing Organization Address City/[facility]/ZIP Co de Phone Number [address] [phone] * (ABNORMAL) CK + CKMB PANEL (11/21/2015 7:20 PM CDT) CK Total 1,309(H) 30 - 200 Units/L [facility] CK-MB 23.1(H) 0.0 - 6.6 ng/mL [facility] Blood specimen (specimen) BLOOD SPECIMEN / Unknown 11/21/2015 7:20 PM CDT 11/21/2015 7:27 PM CDT Jonas Draper MD LAB - CHEMISTRY JHOANA ROSE [address] [phone] * ALCOHOL ETHYL BLOOD (11/21/2015 7:20 PM CDT) Pathologist [facility] Interpretation Ethanol None Detected None Detected mg/dL [facility] Comment:Ethanol levels less than 10 mg/dL are resulted as None detected . Blood specimen (specimen) BLOOD SPECIMEN / Unknown 11/21/2015 7:20 PM CDT 11/21/2015 7:27 PM CDT Jonas Draper MD LAB - CHEMISTRY JHOANA ROSE [address] [phone] Care Teams Oil Expeller Operator Relationship Specialty Start Date End Date Stefany Aguayo MD [address] [place] [address] PCP - General 11/21/15
[2024-06-09] MEDS: AZITHROMYCIN 500 MG/NS 250 ML 500 MG/250 ML BAG 250 MG IVPB (13:37)
--- NOTE | 2024-06-09 13:48 | ED.GENADULT ---
HPI - General Adult General Chief complaint: Fever Stated complaint: fever, STRINGER, cough Time Seen by Provider: 06/09/24 13:33 History of Present Illness HPI narrative: 48-year-old male presenting to the emergency department for evaluation for worsening cough congestion fatigue and fever patient states tends have been ongoing for present 2 weeks. He states that he had been feeling better but then began to feel worse over the last few days. Patient does describe intermittent headache with this. Patient also describes increased cough and congestion. Related Data Allergies Allergy/AdvReac Type Severity Reaction Status Date / Time Sulfa (Sulfonamide Allergy Unknown Unknown Verified 06/09/24 08:55 Antibiotics) Review of Systems Review of Systems: All systems reviewed & are unremarkable except as noted in HPI and below Exam Narrative: APPEARANCE: Well appearing, no pain, no distress, well-nourished. HEAD: normocephalic, atraumatic. EYES: PERRLA/EOMI, conjunctivae clear. NOSE: Normal no drainage EARS:TMS clear with good light reflex. THROAT: Pharynx clear, no exudate. NECK: Supple. No adenopathy, no masses. RESPIRATORY: Airway patent, respirations nonlabored. Clear to auscultation bilaterally, no rales, rhonchi, wheezing. CARDIOVASCULAR: Regular rate and rhythm without murmurs rubs or gallops. ABDOMINAL: Soft, nontender, nondistended, normal bowel sounds MUSCULOSKELETAL: Moves all extremities. Strength/ROM intact, No edema, No calf tenderness. NEURO: Alert. Cranial nerves II through XII intact. Grossly intact SKIN: Warm, dry. Normal Color Course Vital Signs Vital signs: Vital Signs Temperature 97.9 F 06/09/24 09:01 Pulse Rate 92 06/09/24 09:01 Respiratory Rate 16 06/09/24 09:01 Blood Pressure 151/104 H 06/09/24 09:01 Pulse Oximetry 100 06/09/24 09:01 Oxygen Delivery Room Air 06/09/24 09:01 Temperature 98.3 F 06/09/24 13:56 Pulse Rate 87 06/09/24 15:10 Respiratory Rate 15 06/09/24 15:10 Blood Pressure 140/99 H 06/09/24 15:10 Pulse Oximetry 97 06/09/24 15:10 Oxygen Delivery Room Air 06/09/24 13:56 Medical Decision Making [facility] Narrative Medical decision making narrative: 48-year-old male presented to the emergency department for evaluation for increased cough and congestion this been going on for greater than 2 weeks. Patient was started on doxycycline a few days ago. While patient was in the emergency department he was started on IV azithromycin. Patient will be continued on azithromycin for home. Patient is currently afebrile with no leukocytosis hemoglobin of 15.5. Patient had no significant abnormalities on his CMP. Patient did have mild elevation of AST ALT and alk-phos with no elevation T bili no abdominal tenderness to palpation. Patient was negative influenza RSV and COVID. Head CT was negative. On re-evaluation patient did feel improved after IV Compazine, IV Benadryl and IV fluids along with IV Toradol. Patient and family are updated the results of workup with they are comfortable the plan for discharge and close follow-up Differential Diagnosis Differential Diagnosis: COVID, RSV, influenza, pneumonia Vital Signs Vital Signs: Vital Signs Temperature 97.9 F 06/09/24 09:01 Pulse Rate 92 06/09/24 09:01 Respiratory Rate 16 06/09/24 09:01 Blood Pressure 151/104 H 06/09/24 09:01 Pulse Oximetry 100 06/09/24 09:01 Oxygen Delivery Room Air 06/09/24 09:01 Temperature 98.3 F 06/09/24 13:56 Pulse Rate 87 06/09/24 15:10 Respiratory Rate 15 06/09/24 15:10 Blood Pressure 140/99 H 06/09/24 15:10 Pulse Oximetry 97 06/09/24 15:10 Oxygen Delivery Room Air 06/09/24 13:56 Lab Data Lab results reviewed: Yes I reviewed the patient's lab results. 06/09/24 14:39 06/09/24 14:39 Labs: Lab Results 06/09/24 Range/Units 14:39 WBC 7.2 (4.5-10.0) K/mm3 RBC 5.23 (4.6-6.20) M/mm3 Hgb 15.5 (14.0-18.0) g/dL Hct 46.0 (42.0-52.0) % MCV 88.0 (80-100) fl MCH 29.6 (26-34) pg MCHC 33.7 (32-36) g/dl RDW 12.4 (11.5-14.5) % Plt Count 229 (150-375) k/mm3 MPV 10.8 H (7.4-10.4) fl Immature Gran % (Auto) 0.3 (0-0.5) % Neut % (Auto) 69.6 (45.5-73.1) % Lymph % (Auto) 18.3 (18.3-44.2) % Orange % (Auto) 10.7 H (2.6-8.5) % Eos % (Auto) 1.0 (0-4.4) % Baso % (Auto) 0.1 L (0.2-1.2) % Lymph # (Auto) 1.32 (0.9-3.2) K/mm3 Orange # (Auto) 0.8 H (0.1-0.6) K/mm3 Eos # (Auto) 0.1 (0-0.3) K/mm3 Baso # (Auto) 0.0 (0.0-0.1) K/mm3 Abs Immat Gran (auto) 0.02 (0.00-0.031) K/mm3 Absolute Neuts (auto) 5.0 (1.3-6.7) K/mm3 Absolute Nucleated RBC 0.000 (0.0-0.012) K/mm3 Nucleated RBC % 0.0 (0.0-0.2) % % Immature Plt Fraction 5.2 (0.9-11.2) % Sodium 140 (137-145) mmol/L Potassium 3.8 (3.4-5.0) mmol/L Chloride 101 (98-107) mmol/L Carbon Dioxide 29 (22-30) mmol/L Anion Gap 10 (4-12) mmol/L BUN 17 (9-20) mg/dL Creatinine 0.99 (0.7-1.3) mg/dL Estim Creat Clear Calc 109 ml/min Estimated GFR > 60 (59 - ) Glucose 76 (65-110) mg/dL Calcium 9.8 (8.4-10.2) mg/dL Total Bilirubin 0.9 (0.2-1.3) mg/dL AST 99 H (17-59) U/L ALT 230 H (6-50) U/L Alkaline Phosphatase 134 H (38-126) U/L Total Protein 8.0 (6.3-8.2) g/dL Albumin 4.2 (3.5-5.1) g/dL Influenza A (RT-PCR) Negative (Negative) Influenza B (RT-PCR) Negative (Negative) RSV (RT-PCR) Negative (Negative) SARS-CoV-2 RNA (RT-PCR) Negative (Negative) Imaging Data Radiologist's impression: Impressions Head CT 06/09/24 14:29 IMPRESSION: 1. Normal head CT. Discharge Plan Discharge Clinical Impression: Headache Patient Disposition: Home, Self-Care Condition: Stable Instructions: Antibiotic Form, Fever in Adults (ED), Pneumonia (ED) Additional Instructions: Continue the doxycycline as directed. Start taking Luiz the mycin as directed. Tylenol and ibuprofen for fever and for body aches. Drink plenty of fluids. Tessalon Perles for cough suppression. If you have any worsening symptoms then please call or return to the emergency department. Patient Language: Upper Sorbian Prescriptions: New azithromycin 250 mg tablet See Rx Instructions .ROUTE .COMPLEX Qty: 6 0RF Rx Instructions: For 250 mg dose pack: take 500 mg today (day 1), then 250 mg for 4 days (days 2-5) benzonatate 100 mg capsule 100 mg PO TID PRN (Reason: cough) Qty: 14 0RF Follow-up/Referrals: Nenita,NIELS Murray [Primary Care Provider] -
[2024-06-09 13:52] VITALS: BP 156/102; PULSE 85; TEMP 36.8; O2SAT 98
[2024-06-09 13:56] VITALS: BP 156/102; PULSE 85; RESP 18; TEMP 36.8; O2SAT 99
--- OUTSIDE RECORDS SUMMARY | 2024-06-09 13:59 | XMS_ITS | Clinical Summary ---
Author Organization [facility] [employer] Address [address] [place] [address] Care Team Providers Care Renderer Name Role Phone Stefany Aguayo MD Primary Care Provider Source Comments [facility] [employer],non-owned Affiliates and Associated Physician Practices is amultiple site organization consisting of ambulatory clinics and hospital sitesin [place], [place], [place] and [place]. This disclosure is being madepursuant to the Care Everywhere program and may not contain all information available regarding this patient. Last updated 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
--- OUTSIDE RECORDS SUMMARY | 2024-06-09 13:59 | XMS_ITS | Clinical Summary ---
Author Organization [facility] Address [address] [place] [id number] Care Team Providers Care Impregnator [employer]itors Name Role Phone Stefany Aguayo MD Primary [...] (11/02/2022): Added automatically from request for surgery [id number] Social History Tobacco Use Types Packs/Day Years [...] Done Comments Annual Physical 09/02/1979 PHQ-2 (Physician Buna) 1988 Hepatitis C 1994 Hepatitis B Vaccines (1 of 3 - 19+ 3-dose series) 09/02/1995 DTaP, Tdap and Td Vaccines (5 - Td or Tdap) 05/25/2021 05/25/2011, 08/12/1979, 08/12/1979, Additional history exists COVID-19 Vaccine ( - 2023- season) 2023 01/27/2022, 05/07/2021, 06/21/2020, Additional history exists Influenza Adult (#1) 2024 02/01/2020 PHQ-2 (Physician [employer]if[employer]m) 04/26/2024 Colorectal Cancer Screening Colonoscopy (10 Years) [...] Health Maintenance Insurance ALLIED BENEFITS Care Teams Imp[employer]ator [employer] Relationship Specialty Start Date End Date Stefany Aguayo MD [address] [place] [address] [address] [place] [id number] PCP - General FAMILY PRACTICE 11/16/22
--- OUTSIDE RECORDS SUMMARY | 2024-06-09 13:59 | XMS_ITS | Patient Health Summary ---
Author Organization [facility] Address [address] [place] [address] Care Team Providers Care Supervisor Rides Name Role Phone Stefany Aguayo MD Primary Care Provider Note from [facility],non-owned Affiliates and Associated Physician Practices is amultiple site organization consisting of ambulatory clinics and hospital sitesin [place], [place], [place] and [place]. This disclosure is being madepursuant to the Care Everywhere program and may not contain all information available regarding this patient. Last updated 18.[facility] [employer] Allergies * Sulfa Drugs(Rash) -Medium Criticality Medications * Be aware that medications may not be up to date on this document. Alwaysverify current medications with the patient. * levocetirizine (XYZAL) 5 MG tablet(Started 11/13/2015) Take 1 tablet by mouth DAILY. 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 Dictated by Leslie Martin MD (physician vice president). I, Dr. ANA LO M.D. have personally reviewed and interpreted this examination/study. This report was electronically signed by ANA LO M.D. on 05/18/2016 9:06 AM . Narrative 05/18/2016 9:06 AM RADIO CONTROL CRANE OPERATOR EXAMINATION: XR SPINE CERVICAL 2 OR 3 [...] at C5-C6. Dictated by Leslie Martin MD (physician vice president). I, Dr. ANA LO M.D. have personally reviewed and interpreted thisexamination/study. This report was electronically signed by ANA LO M.D. on 05/18/20169:06 AM . Nicholas Bartlett MD DIAGNOSTIC IMAGING O RDERABLES * (ABNORMAL) COMPREHENSIVE METABOLIC PANEL (11/25/2015 4:34 AM CDT) Only the most recent of4 resultswithin the time period is included. BUN 17 7 - 26 mg/dL [facility] Creatinine 1.2 0.6 - 1.2 mg/dL [facility] Sodium 140 136 - 145 mmol/L [facility] Potassium 4.3 3.5 - 4.5 mmol/L [facility] Chloride 102 98 - 107 mmol/L [facility] CO2 26 22 - 29 mmol/L [facility] Glucose 94 70 - 115 mg/dL [facility] Calcium 9.5 8.4 - 10.2 mg/dL [facility] Protein Total 7.0 6.0 - 8.3 g/dL [facility] Albumin 3.5 3.4 - 5.0 g/dL [facility] Bilirubin Total 0.5 0.2 - 1.2 mg/dL [facility] Alkaline Phosphatase 53 40 - 150 Units/L [facility] ALT 125(H) 0 - 55 Units/L [facility] AST 84(H) 5 - 34 Units/L [facility] Anion Gap 16 8 - 18 [facility] BUN/Creatinine Ratio 14 7 - 23 [facility] Osmolality Calculated 291 270 - 300 mOsm/kg [facility] Albumin/Globulin Ratio 1.0(L) 1.1 - 2.3 [facility] eGFR >60 >60 mL/min/1.7 3 m2 [facility] Blood specimen (specimen) BLOOD SPECIMEN / Unknown 11/25/2015 4:34 AM CDT 11/25/2015 4:55 AM CDT Jonas Draper MD LAB - CHEMISTRY ORDMaria De Jesus ROSE [facility] [address] [place] [address] * GGT (11/25/2015 4:34 AM CDT) [facility] GGT 49 9 - 64 Units/L [facility] Blood specimen (specimen) BLOOD SPECIMEN / Unknown 11/25/2015 4:34 AM CDT 11/25/2015 4:55 AM CDT Clementina Elias MD LAB - CHEMISTRY [place] Performing Organization Address [facility]/ZIP Co de Phone Number [address] [phone] * CBC W AUTO DIFFERENTIAL (11/25/2015 4:34 AM CDT) Only the most recent of8 resultswithin the time period is included. [facility] WBC 5.1 3.5 - 10.5 10 3/uL [facility] RBC 4.79 4.30 - 5.70 10 6/uL [facility] Hemoglobin 14.4 13.5 - 17.5 g/dL [facility] Hematocrit 40.9 39.0 - 50.0 % [facility] MCV 85.4 81.0 - 97.0 fL [facility] MCH 30.1 28.0 - 34.0 pg [facility] MCHC 35.2 32.0 - 36.0 g/dL [facility] Platelet Count 193 150 - 400 10 3/uL [facility] RDW-SD 37.4 36.0 - 50.0 fL [facility] RDW-CV 12.0 11.2 - 14.8 % [facility] MPV 10.5 9.3 - 12.8 fL [facility] Neutrophils % 51.6 35.0 - 70.0 % [facility] Lymphocytes % 37.7 19.7 - 55.1 % [facility] Monocytes % 7.5 3.0 - 15.0 % [facility] Eosinophils % 3.0 0.0 - 6.0 % [facility] Basophil % 0.2 0.0 - 1.5 % [facility] Neutrophils Absolute 2.6 1.6 - 7.0 10 3/uL [facility] Lymphocyte Absolute 1.9 0.8 - 2.9 10 3/uL [facility] Monocytes Absolute 0.38 0.14 - 0.66 10 3/uL [facility] Eosinophils Absolute 0.15 0.00 - 0.22 10 3/uL [facility] Basophils Absolute 0.01 0.00 - 0.06 10 3/uL [facility] Immature Granulocytes % 0.2 0.0 - 1.0 % [facility] Blood specimen (specimen) BLOOD SPECIMEN / Unknown 11/25/2015 4:34 AM CDT 11/25/2015 4:55 AM CDT Jonas Draper MD LAB - HEMATOLOGY ORD ERABLES Performing Organization Address City/[facility]/ZIP Co de Phone Number [address] [phone] * CK BLOOD (11/25/2015 4:34 AM CDT) Only the most recent of3 resultswithin the time period is included. CK Total 157 30 - 200 Units/L [facility] Blood specimen (specimen) BLOOD SPECIMEN / Unknown 11/25/2015 4:34 AM CDT 11/25/2015 8:22 AM CDT Clementina Elias MD LAB - CHEMISTRY [place] [address] [phone] * (ABNORMAL) SHON W/REFLEX IFA PATTERN (11/24/2015 8:48 AM CDT) SHON Positive(A ) None Detected [facility] Blood specimen (specimen) BLOOD SPECIMEN / Unknown 11/24/2015 8:48 AM CDT 11/24/2015 9:20 AM CDT Clementina Elias MD LAB - SEROLOGY ORDER [place] [facility] [address] [place] [address] * SHON BLOOD SCREEN W/REFLEX TITER (11/24/2015 8:48 AM CDT) SHON IFA Negative [facility] ([facility]) Comment: Negative <1:80 Borderline 1:80 Positive >1:80 Blood specimen (specimen) BLOOD SPECIMEN / Unknown 11/24/2015 8:48 AM CDT 11/25/2015 11:09 AM CDT Narrative [facility] ([facility]) - 11/26/2015 3:18 PM CDT Performed at: [address] [place] [address] [id number] Coal Hauler: Cecilio Swain PhD, Phone: [phone] Clementina Elias MD LAB - CHEMISTRY JHOANA ROES Performing Organization Address [facility] Co de Phone Number [facility] * MUMPS ANTIBODY IGG (11/24/2015 8:48 AM CDT) Pathologist [facility] Mumps Virus Antibody IgG 57.2 Immune >10.9 AU/mL [facility]) Comment: Negative <9.0 Equivocal 9.0 - 10.9 Positive >10.9 A positive result generally indicates past exposure to Mumps virus or previous vaccination. Blood specimen (specimen) BLOOD SPECIMEN / Unknown 11/24/2015 8:48 AM CDT 11/25/2015 1:06 PM CDT Narrative [facility] ([facility]) - 11/26/2015 3:18 PM CDT Performed at: [address] [place] [address] [id number] Coal Hauler: Cecilio Swain PhD, Phone: [phone] Clementina Elias MD LAB - CHEMISTRY JHOANA ROSE Performing Organization Address [facility]/ZIP Co de Phone Number [facility] ([facility]) * (ABNORMAL) MUMPS ANTIBODY IGM (11/24/2015 8:48 AM CDT) Mumps Virus Antibody IgM 8.48(H) 0.00 - 0.79 AU [facility] ([facility]) Comment: Negative < 0.80 Borderline 0.80 - 1.20 Positive > 1.20 Note: The presence of IgM specific antibody should be interpreted in conjunction with the patient's clinical history and exposure risk when an acute infection is suspected. Blood specimen (specimen) BLOOD SPECIMEN / Unknown 11/24/2015 8:48 AM CDT 11/25/2015 1:06 PM CDT Narrative [facility] ([facility]) - 11/28/2015 6:16 AM CDT Performed at: - [address] [id number] Coal Hauler: Catrachito Juarez MD, Phone: [phone] Clementina Elias MD LAB - CHEMISTRY JHOANA ROSE [facility] ([facility]) * GQ1B IGG ANTIBODY (11/24/2015 7:58 AM CDT) Pathologist [facility] Anti-GQ1b Antibody IgG <1:100 titer [facility] ([facility]) Comment: Reference Range: Negative: < 1:100 titer Positive: => 1:100 titer Titers of less than 1:400 may not be clinically significant. We suggest clinical correlation to ascertain the significance of the low titers. Antibodies against glycolipids (GM1, GD1a, GD1b, GQ1b, asialo GM1, and sulfatides) are present in patients with Guillain-Southside syndrome (GBS), IgM paraproteinemic neuropathy, and chronic [...] and performance parameters have been validated by [employer] This test has not been approved by the U.S. Food and Drug Administration (FDA); however, US FDA approval is not required for clinical use. It is not intended that clinical diagnosis and patient management decisions be made using these results alone. This test has been validated using serum samples. The plant maintenance manager has not determined the efficacy of this test when performed on CSF, plasma, joint or pleural fluid specimens. The performance characteristics of this test were determined by [employer] Blood specimen (specimen) BLOOD SPECIMEN / Unknown 11/24/2015 7:58 AM CDT 11/24/2015 8:07 AM CDT Narrative [facility] ([place]) - 11/29/2015 11:14 AM CDT Performed at: 01 - [employer] [address] [place] [address] [id number] Coal Hauler: Shahriar Quiles PhD, Phone: [phone] Clementina Elias MD LAB - CHEMISTRY JHOANA ROSE [facility] * MRI LUMBAR SPINE WO CONTRAST [...] disc disease in the cervical spine at C5-W7frqnp. Thoracic spine: There is a thin epidural fluid collection that extends from T1 through M41sdgetq of the thoracic spine, measuring up to [...] fluid collection that extends from T1 through K51epkyuv of the thoracic spine, measuring up to [...] disc disease in the cervical spine at C5-J2pqrcb. Thoracic spine: There is a thin epidural fluid collection that extends from T1 through A60srgfdc of the thoracic spine, measuring up to [...] fluid collection that extends from T1 through L09hwkovb of the thoracic spine, measuring up to [...] WBC (corrected for NRBC) 4.4 10 3/uL [facility] Total Cell Count 100 [facility] Neutrophils Absolute Manual 2.38 1.60 - 7.00 10 3/uL [facility] Comment:(BANDS+SEGS) x WBC = NEUT # (ANC) Lymphocyte Absolute Manual 1.63 0.80 - 2.90 10 3/uL [facility] Monocytes Absolute Manual 0.26 0.14 - 0.66 10 3/uL [facility] Eosinophils Absolute Manual 0.09 0.00 - 0.22 10 3/uL [facility] Band % Manual 3 0 - 10 % [facility] Neutrophil % Manual 51 30 - 60 % [facility] Lymphocyte % Manual 37 20 - 45 % [facility] Monocytes % Manual 6 2 - 10 % [facility] Eosinophils % Manual 2 1 - 6 % [facility] Atypical Lymphocyte % Manual 1(H) 0 % [facility] Platelet Estimate Adequate Adequate [facility] RBC Morphology Normal [facility] Blood specimen (specimen) BLOOD SPECIMEN / Unknown 11/23/2015 4:56 AM CDT 11/23/2015 5:20 AM CDT Jonas Draper MD LAB - HEMATOLOGY ORD ERABLES [address] [phone] * (ABNORMAL) URINALYSIS REFLEX TO MICROSCOPIC NO CULTURE (11/22/2015 5:01 PM CDT) Color UA Yellow Straw, Yellow, Colorless, Light Yellow [facility] Clarity UA Clear Clear [facility] Specific [place] UA 1.010 1.001 - 1.030 [facility] pH UA 7.0 5.0 - 8.0 [facility] Protein UA Negative <=20 mg/dL [facility] Glucose UA Negative Negative mg/dL [facility] Ketone UA Negative Negative mg/dL [facility] Bilirubin UA Negative Negative mg/dL [facility] Blood UA Negative Negative [facility] Nitrite UA Negative Negative [facility] Leukocyte Esterase Negative Negative [facility] Urobilinogen UA <2.0 <2.0 mg/dL [facility] RBC UA 3 0 - 8 /HPF [facility] WBC UA <1 0 - 2 /HPF [facility] Bacteria UA Rare Rare, Occasional, None /HPF [facility] Mucus UA Rare(A) None /LPF [facility] Urine specimen (specimen) 11/22/2015 5:01 PM CDT 11/22/2015 5:01 PM CDT Jonas Draper MD LAB - URINALYSIS ORD PAT Performing Organization Address [facility]/ZIP Co de Phone Number [address] [phone] * FOLATE (11/22/2015 11:15 AM CDT) Pathologist [facility] Folate 11.9 7.0 - 31.4 ng/mL [facility] Blood specimen (specimen) BLOOD SPECIMEN / Unknown 11/22/2015 11:15 AM CDT 11/22/2015 11:15 AM CDT Clementina Elias MD LAB - CHEMISTRY JHOANA ROSE Performing Organization Address [facility]/ZIP Co de Phone Number [address] [phone] * (ABNORMAL) CELL COUNT CSF (11/22/2015 1:57 AM CDT) Only the most recent of2 resultswithin the time period is included. Pathologist [facility] Color Fluid Colorless Colorless, Straw [facility] Clarity Fluid Clear Clear [facility] Volume Fluid 1.5 mL [facility] WBC Calculation Fluid 0 0 - 5 /uL [facility] RBC Calculation 1(H) 0 /uL [facility] Xanthochromia Fluid Negative Negative [facility] Fluid specimen (specimen) CEREBROSPINAL FLUID SPECIMEN / Unknown 11/22/2015 1:57 AM CDT 11/22/2015 1:58 AM CDT Jonas Draper MD LAB - BODY FLUID ORD PAT Performing Organization Address [facility]/ZIP Co de Phone Number [address] [phone] * (ABNORMAL) DIFFERENTIAL MANUAL FLUID (11/22/2015 1:57 AM CDT) Lymphocytes % Fluid 38(L) 40 - 80 % [facility] Monocytes % Fluid 62(H) 15 - 45 % [facility] Fluid specimen (specimen) CEREBROSPINAL FLUID SPECIMEN / Unknown 11/22/2015 1:57 AM CDT 11/22/2015 1:58 AM CDT Narrative [facility] - 11/22/2015 2:31 AM CDT No reference range established for other differential results. Jonas Draper MD LAB - BODY FLUID ORD ERABLES Performing Organization Address [facility] Co de Phone Number [facility] [address] [phone] * CELL COUNT W DIFF CSF (11/22/2015 1:57 AM CDT) Only the most recent of2 resultswithin the time period is included. Fluid specimen (specimen) CEREBROSPINAL FLUID SPECIMEN / Unknown 11/22/2015 1:[address] [facility] - 11/22/2015 2:32 AM CDT The following orders were created for panel order CSF Cell Count with Diff - Last Tube. Procedure Abnormality Status --------- ------ SPINAL FLUID CELL COUNT[[id number]] Abnormal Final result Please view results for these tests on the individual orders. Jonas Draper MD LAB - BODY FLUID ORD ERABLES Performing Organization Address [facility] Co de Phone Number [facility] [address] * LYME DISEASE AB SCREEN CSF (11/22/2015 1:56 AM CDT) Pathologist [facility] Borrelia burgdorferi Antibody CSF 0.07 <=0.99 NOHELIA [facility] ([place]) Comment: INTERPRETIVE INFORMATION: Borrelia [...] days. Test developed and characteristics determined by [employer]. See Compliance Statement B: [email or web address] Spinal fluid (substance) CEREBROSPINAL FLUID SPECIMEN / Unknown 11/22/2015 1:56 AM CDT 11/22/2015 1:58 AM CDT Jonas Draper MD LAB - BODY FLUID ORD ERABLES [facility] ([facility]) * PROTEIN CSF (11/22/2015 1:56 AM CDT) Protein CSF 23 15 - 45 mg/dL [facility] Spinal fluid (substance) CEREBROSPINAL FLUID SPECIMEN / Unknown 11/22/2015 1:56 AM CDT 11/22/2015 1:58 AM CDT Jonas Draper MD LAB - BODY FLUID ORD ERABLES [address] [phone] * GLUCOSE CSF (11/22/2015 1:56 AM CDT) Glucose CSF 55 40 - 70 mg/dL [facility] Spinal fluid (substance) CEREBROSPINAL FLUID SPECIMEN / Unknown 11/22/2015 1:56 AM CDT 11/22/2015 1:58 AM CDT Jonas Draper MD LAB - BODY FLUID ORD ERABLES Performing Organization Address [facility] Co de Phone Number [address] [phone] * CULTURE CSF+GRAM STAIN (11/22/2015 1:56 AM CDT) Culture CSF No Growth at 1 week [facility] Gram Stain No Organism Seen [facility] Spinal fluid (substance) CEREBROSPINAL FLUID SPECIMEN / Unknown 11/22/2015 1:56 AM CDT 11/22/2015 1:58 AM CDT Narrative [facility] - 11/29/2015 11:06 AM CDT Specimen Type->Cerebrospinal Fluid Gram Stains are routinely screened for the presence of Polymorphonuclear Cells. Gram Stains are routinely screened for the presence of Polymorphonuclear Cells. Jonas Draper MD LAB - MICROBIOLOGY O RDERABLES Performing Organization Address [facility] de Phone Number [address] [phone] * EKG 12-LEAD (11/22/2015 12:00 AM CDT) EKG [facility] Comment: Exam Date/Time: Nov 22 2015 [...] ECGs available Confirmed by Ronny WEISS, CASSANDRA ([id number]), editor news DAVID OREILLY ([id number]) on 12/16/2015 12:00:26 PM Referred By: REFERRING NO Confirmed By:CASSANDRA WEISS M.D 11/22/2015 Jonas Draper MD ECG ORDERABLES Performing Organization Address [facility]/State/ZIP Co de Phone Number [facility] * T3 FREE (11/21/2015 9:25 PM CDT) T3 Free 2.9 1.7 - 3.7 pg/mL [facility] Blood specimen (specimen) BLOOD SPECIMEN / Unknown 11/21/2015 9:25 PM CDT 11/21/2015 9:27 PM CDT Clementina Elias MD LAB - CHEMISTRY J[place]ANA ROSE [address] [phone] * VITAMIN B12 (11/21/2015 9:25 PM CDT) Vitamin B12 431 213 - 816 pg/mL [facility] Blood specimen (specimen) BLOOD SPECIMEN / Unknown 11/21/2015 9:25 PM CDT 11/21/2015 9:27 PM CDT Clementina Elias MD LAB - CHEMISTRY JHOANA ROSE Performing Organization Address City/[facility]/ZIP Co de Phone Number [address] [phone] * TSH (11/21/2015 9:25 PM CDT) TSH 2.207 0.350 - 4.940 uIU/mL [facility] Blood specimen (specimen) BLOOD SPECIMEN / Unknown 11/21/2015 9:25 PM CDT 11/21/2015 9:27 PM CDT Clementina Elias MD LAB - CHEMISTRY JHOANA ROSE [address] [phone] * T4 FREE (11/21/2015 9:25 PM CDT) T4 Free 0.9 0.7 - 1.5 ng/dL [facility] Blood specimen (specimen) BLOOD SPECIMEN / Unknown 11/21/2015 9:25 PM CDT 11/21/2015 9:27 PM CDT Clementina Elias MD LAB - CHEMISTRY JHOANA ROSE Performing Organization Address City/[facility]/ZIP Co de Phone Number [address] [phone] * DRUG ABUSE PANEL 10-20+ETHANOL URINE NO CONFIRM (11/21/2015 9:22 PM CDT) Pathologist [facility] Amphetamines Screen Urine Negative Negative: < 1000 ng/mL [facility] Barbiturates Screen Urine Negative Negative: < 200 ng/mL [facility] Benzodiazepine Screen Urine Negative Negative: < 200 ng/mL [facility] Opiates Urine Negative Negative: < 300 ng/mL [facility] Cocaine Metabolites Urine Negative Negative: < 300 ng/mL [facility] Phencyclidine Screen Urine Negative Negative: < 25 ng/ml [facility] Cannabinoids Screen Urine Negative Negative: <50 ng/mL [facility] Methadone Screen Urine Negative Negative: < 300 ng/mL [facility] Urine specimen (specimen) 11/21/2015 9:22 PM CDT 11/21/2015 9:27 PM CDT Narrative [facility] - 11/21/2015 9:43 PM CDT The Urine Toxicology Screening Panel does not screen for Propoxyphene, Meprobamate, Carisoprodol, Trazodone, jayr-vsn-gfiyxdt medications and/or volatiles (Acetone, Isopropanol, Methanol or Ethylene Glycol). Ethanol, Salicylate, Acetaminophen, Tricyclic Antidepressants and several therapeutic drugs may be individually assayed in serum or plasma specimen. Toxicology testing by the [facility] is an aid to medical diagnosis and treatment of patients. No documented chain of custody was maintained. Results are intended to be used for clinical purposes only. Jonas Draper MD LAB - URINE CHEMISTR Y ORDERABLES Performing Organization Address [facility]/ZIP Co de Phone Number [address] [phone] * CT HEAD WO CONTRAST (11/21/2015 7:45 [...] are those recommended by CDC/ASTPHLD. p23=Osp C, q76=gzrrehesr Note: Sera from individuals with the following may cross react in the Lyme Western Blot assays: other spirochetal diseases (periodontal disease, leptospirosis, relapsing fever, yaws, and pinta); connective autoimmune (Rheumatoid Arthritis and Systemic Lupus Erythematosus and also individuals with Antinuclear Antibody); other infections (Centenary Spotted Fever; Lynen-Banerjee Virus, and Cytomegalovirus). Blood specimen (specimen) BLOOD SPECIMEN / Unknown 11/21/2015 7:20 PM CDT 11/21/2015 7:27 PM CDT Narrative [facility] ([place]) - 11/26/2015 5:09 PM CDT Performed at: 01 - [address] [id number] Coal Hauler: Catrachito Juarez MD, Phone: [phone] Jonas Draper MD LAB - SEROLOGY ORDER [place] Performing Organization Address City/[facility]/ZIP Co de Phone Number [facility] ([place]) * (ABNORMAL) C-REACTIVE PROTEIN (11/21/2015 7:20 PM CDT) C-Reactive Protein 1.2(H) <=0.5 mg/dL [facility] Blood specimen (specimen) BLOOD SPECIMEN / Unknown 11/21/2015 7:20 PM CDT 11/21/2015 7:27 PM CDT Jonas Draper MD LAB - CHEMISTRY ORDE RABESE Performing Organization Address [facility]/ZIP Co de Phone Number [address] [phone] * (ABNORMAL) ERYTHROCYTE SEDIMENTATION RATE (11/21/2015 7:20 PM CDT) Erythrocyte Sedimentation Rate Westergren 18(H) 0 - 10 MM/HR [facility] Blood specimen (specimen) BLOOD SPECIMEN / Unknown 11/21/2015 7:20 PM CDT 11/21/2015 7:27 PM CDT Jonas Draper MD LAB - HEMATOLOGY ORD ERABLES Performing Organization Address City/[facility]/ZIP Co de Phone Number [address] [phone] * (ABNORMAL) CK + CKMB PANEL (11/21/2015 7:20 PM CDT) CK Total 1,309(H) 30 - 200 Units/L [facility] CK-MB 23.1(H) 0.0 - 6.6 ng/mL [facility] Blood specimen (specimen) BLOOD SPECIMEN / Unknown 11/21/2015 7:20 PM CDT 11/21/2015 7:27 PM CDT Jonas Draper MD LAB - CHEMISTRY JHOANA [facility] [address] [phone] * ALCOHOL ETHYL BLOOD (11/21/2015 7:20 PM CDT) Pathologist [facility] Interpretation Ethanol None Detected None Detected mg/dL [facility] Comment:Ethanol levels less than 10 mg/dL are resulted as None detected . Blood specimen (specimen) BLOOD SPECIMEN / Unknown 11/21/2015 7:20 PM CDT 11/21/2015 7:27 PM CDT Jonas Draper MD LAB - CHEMISTRY [facility] [address] [phone] Care Teams Supervisor Rides Relationship Specialty Start Date End Date Stefany Aguayo MD [address] [place] [address] PCP - General 11/21/15
--- OUTSIDE RECORDS SUMMARY | 2024-06-09 13:59 | XMS_ITS | Referral Summary ---
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 This disclosure is being madepursuant to the Care Everywhere program and may not contain all information available regarding this patient. 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
--- NOTE | 2024-06-09 14:07 | PC.NURSE ---
pt taken to CT
[2024-06-09 14:49] LABS: Basophils Percent Auto 0.1 % (0.2-1.2); Eosinophils Absolute Auto 0.1 K/mm3 (0-0.3); Hemoglobin 15.5 g/dL (14.0-18.0); Immature Granulocyte Absolute 0.02 K/mm3 (0.00-0.031); Immature Granulocyte Percent A 0.3 % (0-0.5); Immature Platelet Fraction Pct 5.2 % (0.9-11.2); Lymphocytes Absolute Auto 1.32 K/mm3 (0.9-3.2); Lymphocytes Percent Auto 18.3 % (18.3-44.2); Mean Corpuscular HGB Conc 33.7 g/dl (32-36); Mean Corpuscular Hemoglobin 29.6 pg (26-34); Mean Platelet Volume 10.8 fl (7.4-10.4); Monocytes Absolute Auto 0.8 K/mm3 (0.1-0.6); Monocytes Percent Auto 10.7 % (2.6-8.5); Neutrophils Percent Auto 69.6 % (45.5-73.1); Platelet Count Result 229 k/mm3 (150-375); Red Blood Count 5.23 M/mm3 (4.6-6.20); Red Cell Distribution Width 12.4 % (11.5-14.5); White Blood Count 7.2 K/mm3 (4.5-10.0)
[2024-06-09 15:02] LABS: Alanine Aminotransferase 230 U/L (6-50); Albumin Level 4.2 g/dL (3.5-5.1); Alkaline Phosphatase 134 U/L (38-126); Anion Gap 10 mmol/L (4-12); Aspartate Amino Transferase 99 U/L (17-59); Bilirubin,Total 0.9 mg/dL (0.2-1.3); Blood Urea Nitrogen 17 mg/dL (9-20); Calcium 9.8 mg/dL (8.4-10.2); Carbon Dioxide 29 mmol/L (22-30); Chloride 101 mmol/L (98-107); Estimated CRCL calculation 109 ml/min; Estimated Glomerular Filt Rate > 60; Glucose 76 mg/dL (65-110); Potassium 3.8 mmol/L (3.4-5.0); Sodium 140 mmol/L (137-145)
[2024-06-09 15:10] VITALS: BP 140/99; PULSE 87; RESP 15; O2SAT 97
[2024-06-09] MEDS: diphenhydrAMINE HCl INJ 50 MG/ML VIAL 25 MG IV PUSH (15:11)
[2024-06-09] MEDS: PROCHLORPERAZINE EDISYLATE 10 MG/2 ML VIAL IV PUSH (15:11)
[2024-06-09] MEDS: KETOROLAC 15 MG/ML VIAL (*BKC) IV PUSH (15:11)
[2024-06-09] MEDS: SODIUM CHLORIDE 0.9% IV 1,000 ML 999 ML IV CONT (15:11)
[2024-06-09 15:36] LABS: Influenza A QL RT-PCR Negative (Negative); Influenza B QL RT-PCR Negative (Negative); RSV RNA, RT-PCR Negative (Negative); SARS-CoV-2 RNA PCR Negative (Negative)
== END 2024-06-09 16:37 | disposition home or self-care (01) ==
PROVIDERS: Emergency Provider Emergency Medicine; PCP Student in an Organized Health Care Education/Training Program
DX: R51.9 Headache, unspecified (principal); Z20.822 Contact with and (suspected) exposure to COVID-19
CPT/HCPCS: 36415; 70450; 80053; 85025; 85055; 87637; 96365; 96375; 99284; J0456; J0780; J1200; J1885; J7030